=== PATIENT | female | born 1965 ===

== ENCOUNTER 2024-06-04 10:20 | Day surgery (SDC) | payer OTHER ==
[2024-05-31 08:48] VITALS: BP 136/80
[2024-05-31 08:59] LABS: HEMATOCRIT 40.4 % (36.0-45.00); HEMOGLOBIN 13.4 g/dL (12.0-15.00); MEAN CORPUSCULAR HEMOGLOBIN 29.3 pg (27.00-32.0); MEAN CORPUSCULAR HGB CONC 33.3 g/dl (32.0-36.0); PH,URINE 5.5 (5.0-8.0); PLATELET COUNT 158 K/uL (150-450); RED BLOOD COUNT 4.59 M/uL (4.00-6.00); RED CELL DISTRIBUTION WIDTH 13.7 % (11.5-14.5); URINE APPEARANCE Clear; URINE BILIRRUBIN Negative (NEGATIVE); URINE BLOOD Negative; URINE COLOR Yellow; URINE GLUCOSE Negative (NEGATIVE); URINE KETONE Negative (NEGATIVE); URINE LEUKOCYTE Trace; URINE NITRATE Negative; URINE PROTEIN Negative (NEGATIVE); URINE UROBILINOGEN 0.2 E.U./dl
[2024-05-31 09:04] LABS: URINE BACTERIA 2524.7 uL (0.0-1933); URINE EPITHELIAL CELLS 37.3 uL (0.0-38.8); URINE RBC 5.8 uL (0.0-20.8); URINE WBC 57.6 uL (0.0-23.2)
[2024-05-31 09:08] LABS: URINE CAST 0.44 uL (0.0-1.40)
[2024-05-31 09:19] LABS: INR 1.05; PARTIAL THROMBOPLASTIN TIME 26.7 SECONDS (22.0-34.0); PROTHROMBIN TIME 11.4 SECONDS (9.0-11.5)
[2024-05-31 10:45] LABS: ALBUMIN 3.8 gm/dL (3.4-5.0); CALCIUM 9.4 mg/dL (8.5-10.1); CREATININE SERUM 0.83 mg/dL (0.55-1.02); GFR 70.12; PHOSPHOROUS 3.2 mg/dL (2.5-4.9); POTASSIUM 4.39 mEq/L (3.5-5.1)
[~2024-06-04] VITALS: Ht 162.6 cm; Wt 97.5 kg
[~2024-06-04 10:20] MED LIST: VALSARTAN80 MG PO
[2024-06-04] MEDS ORDERED: LIDOCAINE HCL 1%/EPINEPHRINE 20ML VIAL IJ ONE (12:45)
[2024-06-04] MEDS ORDERED: CEFAZOLIN SODIUM 1,000 MG VIAL IV SCH (12:45)
[2024-06-04] MEDS ORDERED: OXYMETAZOLINE HCL 15 ML NASAL DROPS NASAL ONE (12:45)
[2024-06-04] MEDS ORDERED: AMOX-CLAV 875-1 EACH PO (13:04)
[2024-06-04] MEDS ORDERED: AYR50 ML NASAL (13:05)
== END 2024-06-04 14:55 | disposition home or self-care (01) ==
LOC: CIR.AMB 10:20
PROVIDERS: ATTEND Otolaryngology Otology & Neurotology
DX: J34.2 Deviated nasal septum (principal); J34.3 Hypertrophy of nasal turbinates; J32.4 Chronic pansinusitis

== ENCOUNTER 2024-10-18 12:23 | Outpatient (CLI) | payer OTHER ==
[~2024-10-18 12:23] MED LIST changes: +AMOX-CLAV 875-1 EACH PO; +AYR50 ML NASAL
== END 2024-10-18 12:26 | disposition home or self-care (01) ==
LOC: SONOGRAMA 12:23
PROVIDERS: ATTEND Pathology Anatomic Pathology & Clinical Pathology
DX: R59.0 Localized enlarged lymph nodes (principal); R22.0 Localized swelling, mass and lump, head